=== PATIENT | female | born 1970 | race Caucasian/White ===

== ENCOUNTER 2018-12-20 22:14 | Emergency (ER) | payer BC ==
[2018-12-20] MEDS ORDERED: Aspirin 81 MG Tab.Chew PO ONE (22:34)
[2018-12-20] MEDS ORDERED: Heparin Sodium 5,000 Units/ML Vial IVPUSH ONE (22:34)
[2018-12-20] MEDS ORDERED: Clopidogrel 75 MG Tab PO ONE (22:34)
--- NOTE | 2018-12-20 22:34 | EDM.PDOC ---
ED HPI GENERAL MEDICAL PROBLEM - General Stated Complaint: CHEST PAIN,BACK PAIN,SHORT OF BREATH Time Seen by Provider: 12/20/18 22:25 Source of Information: Reports: Patient, Family History Limitations: Reports: No Limitations - History of Present Illness INITIAL COMMENTS - FREE TEXT/NARRATIVE: 48-year-old female with chest pain, radiating to the neck and shoulders and right hand for the past 45 minutes. Some diaphoresis, mild dyspnea, mild nausea. Onset: Sudden Duration: Minutes: (45 minutes ago) Location: Reports: Chest Associated Symptoms: Reports: Chest Pain, Nausea/Vomiting (Nausea but no vomiting). Denies: Confusion, Cough, Malaise Chest Pain Score (Numeric/FACES): 6 - Related Data Allergies Allergy/AdvReac Type Severity Reaction Status Date / Time cetirizine HCl [From Zyrtec] Allergy Rash Verified 12/20/18 22:39 Home Meds: Home Meds hydroCHLOROthiazide [Hydrochlorothiazide] 1 tab PO DAILY 12/20/18 [History] ED ROS GENERAL - Review of Systems Review Of Systems: See Below Constitutional: Reports: Malaise. Denies: Fever, Chills HEENT: Reports: Other (Some chest pain radiating into the throat) Respiratory: Reports: Shortness of Breath. Denies: Cough Cardiovascular: Reports: Chest Pain. Denies: Palpitations GI/Abdominal: Reports: Nausea. Denies: Abdominal Pain, Vomiting : Reports: No Symptoms Skin: Reports: No Symptoms Neurological: Reports: No Symptoms ED EXAM, GENERAL - Physical Exam Exam: See Below Exam Limited By: No Limitations General Appearance: Alert, No Apparent Distress Eye Exam: Bilateral Eye: Normal Inspection Head: Atraumatic Neck: Normal Inspection Respiratory/Chest: No Respiratory Distress, Lungs Clear Cardiovascular: Regular Rate, Rhythm GI/Abdominal: Soft, Non-Tender Extremities: Normal Inspection. No: Pedal Edema Neurological: Alert, Oriented Skin Exam: Warm, Dry EKG INTERPRETATION ST-T: Elevated (Findings of acute anterior WA) Course - Vital Signs Last Recorded V/S: Last Vital Signs Temp 96.2 F 12/20/18 22:34 Pulse 81 12/20/18 22:34 Resp 14 12/20/18 22:34 BP 161/104 H 12/20/18 22:34 Pulse Ox 98 12/20/18 22:34 - Orders/Labs/Meds Orders: Active Orders 24 hr Category Date Time Status EKG Documentation Completion [RC] ASDIRECTED Care 12/20/18 22:38 Active EKG 12 Lead [EK] Routine Ther 12/20/18 22:38 Ordered Labs: Laboratory Tests 12/20/18 12/20/18 Range/Units 22:38 22:38 WBC 11.5 H (4.5-11.0) K/uL RBC 4.49 (3.30-5.50) M/uL Hgb 13.9 (12.0-15.0) g/dL Hct 40.4 (36.0-48.0) % MCV 90 (80-98) fL MCH 31 (27-31) pg MCHC 34 (32-36) % Plt Count 344 (150-400) K/uL Neut % (Auto) 47 (36-66) % Lymph % (Auto) 43 (24-44) % [place]duff[place] % (Auto) 8 H (2-6) % Eos % (Auto) 2 (2-4) % Baso % (Auto) 0 (0-1) % Sodium 139 L (140-148) mmol/L Potassium 3.2 L (3.6-5.2) mmol/L Chloride 103 (100-108) mmol/L Carbon Dioxide 25 (21-32) mmol/L Anion Gap 14.2 H (5.0-14.0) mmol/L BUN 19 H (7-18) mg/dL Creatinine 0.9 (0.6-1.0) mg/dL Est Cr Clr Drug Dosing 61.86 mL/min Estimated GFR (MDRD) > 60 (>60) Glucose 140 H (74-106) mg/dL Calcium 8.5 (8.5-10.1) mg/dL Total Bilirubin 0.3 (0.2-1.0) mg/dL AST 14 L (15-37) U/L ALT 13 (12-78) U/L Alkaline Phosphatase 61 (46-116) U/L Troponin I 0.056 (0.000-0.056) ng/mL Total Protein 7.2 (6.4-8.2) g/dL Albumin 3.5 (3.4-5.0) g/dL Globulin 3.7 H (2.3-3.5) g/dL Albumin/Globulin Ratio 1.0 L (1.2-2.2) Meds: Medications Discontinued Medications Generic Name Dose Route Start Last Admin Trade Name Maurice PRN Reason Stop Dose Admin Aspirin 324 mg 12/20/18 22:34 12/20/18 22:43 Aspirin PO 12/20/18 22:35 324 mg ONETIME ONE Administration Clopidogrel Bisulfate 600 mg 12/20/18 22:34 12/20/18 22:43 Plavix PO 12/20/18 22:35 600 mg ONETIME ONE Administration Heparin Sodium (Porcine) 4,000 units 12/20/18 22:34 12/20/18 22:42 Heparin Sodium IVPUSH 12/20/18 22:35 4,000 units ONETIME ONE Administration Heparin Sodium/Dextrose 25,000 units in 500 mls @ 20 mls/hr 12/20/18 23:00 22:54 Heparin 25,000 Units In D5w 500 Ml IV 1,000 units/hr TITRATE DIPAK 20 mls/hr Administration Protocol 1,000 UNITS/HR - Re-Assessments/Exams Free Text/Narrative Re-Assessment/Exam: 12/20/18 22:45 Patient was given 324 mg of chewable aspirin, 600 mg of Plavix, and 4000 units of IV heparin. She'll be started on 1000 units an hour, and urgent transfer to [facility] for cardiology intervention is arranged. 12/20/18 23:01 Troponin is 0.056, the rest of her labs are sent with the patient. Departure - Departure Time of Disposition: 23:11 Disposition: DC/Tfer to Other Reason for Transfer *Q: Primary PCI Indicated Clinical Impression: STEMI (ST elevation myocardial infarction) Qualifiers: Involved coronary artery: unspecified coronary artery Qualified Code(s): I21.3 - ST elevation (STEMI) myocardial infarction of unspecified site Referrals: Chirag Becerra NP [Primary Care Provider] - Forms: ED Department Discharge Care Plan Goals: Patient is urgently transferred to [facility] for cardiology intervention for acute anterior STEMI. - My Orders Last 24 Hours: My Active Orders 12/20/18 22:38 EKG Documentation Completion [RC] ASDIRECTED EKG 12 Lead [EK] Routine - Assessment/Plan Last 24 Hours: My Active Orders 12/20/18 22:38 EKG Documentation Completion [RC] ASDIRECTED EKG 12 Lead [EK] Routine
[2018-12-20] MEDS ORDERED: Heparin Sodium/D5W 25,000 UNITS/500 ML BAG IV SCH ×2 (23:00)
== END 2018-12-20 23:12 | disposition other institution (70) ==
LOC: JP.ED 22:14
DX: I21.3 ST elevation (STEMI) myocardial infarction of unspecified site (principal); Z79.899 Other long term (current) drug therapy; Z88.8 Allergy status to other drugs, medicaments and biological substances
CPT/HCPCS: 36415; 80053; 84484; 85025; 93005; 96365; 99285; A9270; J1644